=== PATIENT | male | born 1985 | race Caucasian/White ===

== ENCOUNTER → 2017-04-27 | Outpatient (CLI) | payer OTHER ==
[~2017-04-27] MED LIST: GADAVIST IV PRN
--- NOTE | 2017-04-27 12:48 | DIAGNOSTIC IMAGING REPORT ---
ORBIT RADIOGRAPHS 3 VIEWS HISTORY: pre-MRI screening. COMPARISON: None. FINDINGS: There are no radiopaque foreign bodies identified within the orbits. IMPRESSION: No radiopaque foreign bodies identified within the orbits. Electronically signed by: Geoff Loyola M.D. 04/27/2017 12:47 PM Dictated Date/Time: 04/27/2017 12:47 PM
--- NOTE | 2017-04-27 13:54 | DIAGNOSTIC IMAGING REPORT ---
FLUOROSCOPICALLY GUIDED RIGHT SHOULDER GADOLINIUM ARTHROGRAM PRE-MRI CLINICAL HISTORY: Right shoulder pain COMPARISON STUDY: Outside radiograph dated 04/12/2017 FINDINGS: A timeout was performed. The risks the procedure were explained the patient informed consent was obtained. The patient was prepped and draped in sterile fashion. The skin was anesthetized 1% lidocaine. Under fluoroscopic guidance, 20-gauge spinal needle was introduced into the joint capsule. A mixture of Optiray 300 and gadolinium was instilled. A single fluoroscopic spot image documents intra-articular location of the contrast. 10 seconds of fluoroscopic time was utilized. The patient's of the MRI suite for further imaging. IMPRESSION: Successful fluoroscopically guided right shoulder gadolinium arthrogram pre-MRI Electronically signed by: Geoff Loyola M.D. 04/27/2017 1:52 PM Dictated Date/Time: 04/27/2017 1:51 PM
--- NOTE | 2017-04-27 14:16 | DIAGNOSTIC IMAGING REPORT ---
MR ARTHROGRAM OF THE RIGHT SHOULDER CLINICAL HISTORY: Right shoulder pain. Limited range of motion. COMPARISON STUDY: Radiographs of the right shoulder dated 04/12/2017. TECHNIQUE: Following the intra-articular administration of gadolinium contrast, MR arthrogram of the right shoulder was performed utilizing various T1 and T2 weighted sequences in the axial, sagittal, coronal planes. FINDINGS: Rotator cuff: The supraspinatus and intraspinous tendons are preserved. The teres minor and subscapularis tendons are intact. There is no subacromial or subdeltoid bursal fluid. Mild productive change and edema is seen at the acromioclavicular joint. Biceps tendon: The long head of the biceps tendon is normal in signal intensity and located within the bicipital groove. The anchor is maintained. Labrum: Labrum appears diminutive and there is circumferential labral tearing. Shoulder joint: The joint space is well distended with intra-articular contrast. There is disruption of the inferior glenohumeral ligament, with contrast extending along the medial humeral shaft consistent with a HAGL injury. The articular cartilage over the glenoid is well maintained. Normal marrow signal intensity is preserved of the visualized osseous structures. Musculature and soft tissues: The musculature of the shoulder is normal in bulk and signal intensity. No atrophy is seen. IMPRESSION: 1. Findings are consistent with a HAGL injury. 2. There is circumferential tearing of the labrum. 3. The rotator cuff appears intact. 4. Degenerative change and mild edema are seen at the acromioclavicular joint. Electronically signed by: Oscar Arevalo M.D. 04/27/2017 2:15 PM Dictated Date/Time: 04/27/2017 2:09 PM
== END | disposition home or self-care (01) ==
LOC: C.MRIBC 11:38
PROVIDERS: ATTEND Orthopaedic Surgery
DX: M25.511 Pain in right shoulder (principal)

== ENCOUNTER → 2017-05-19 | Day surgery (SDC) | payer OTHER ==
[2017-05-09 10:44] VITALS: Ht 167.6 cm; Wt 86.4 kg
[~2017-05-19] VITALS: Ht 167.6 cm; Wt 86.4 kg
[~2017-05-19] MED LIST changes: +ATROPINE SULFATE 0.1 MG/ML 5ML SYR IV PRN; +BUPIVACAINE 0.25% 30 ML VIAL ONE; +BUSP1TAB46 PO; +CEFAZOLIN 2000MG IV PUSH 15 ML IV SCH; +EpHEDrine SULFATE INJ 50 MG/ML AMP IV PRN; +EpINEphrine INJ 1MG/ML AMP 1 MG/ML AMP ONE; +FENTANYL CITRATE INJ 50 MCG/1 ML 2 ML VIAL IV PRN; +FENTANYL CITRATE INJ 50 MCG/1 ML 2 ML VIAL ONE; -GADAVIST IV PRN; +GLYCOPYRROLATE INJ 0.2 MG/ML VIAL ONE; +KETO10TA PO; +LACTATED RINGER'S 1000ML 1,000 ML IV SCH; +LIDOCAINE HCL 2% 2 ML VIAL (20MG/ML) ONE; +LOSA1TAB PO; +MIDAZOLAM HCL 1 MG/ML 2ML VIAL ONE; +NEOSTIGMINE METHYLSULFATE 5 MG/5 ML SYR ONE; +ONDANSETRON INJ 2 MG/ML 2 ML VIAL IV PRN; +ONDANSETRON INJ 2 MG/ML 2 ML VIAL ONE; +OXYC-57 PO; +OXYCODONE/ACETAMINOPHEN 5-325 TAB PO PRN; +PROPOFOL IV EMULSION 10 MG/ML 20 ML VIAL IV ONE; +ROCURONIUM BROMIDE 10 MG/ML 5 ML VIAL IV ONE; +ROPIVACAINE 0.5% 5 MG/ML 30 ML VIAL ONE; +SODIUM CHLORIDE 0.9% 1000ML 1,000 ML IV SCH
--- NOTE | 2017-05-19 06:52 | History & Physical Bridge - SC ---
H&P Re-Evaluation Bridge Note: I have examined the patient, reviewed the History & Physical and in the interval since the performance of the History & Physical I have noted the following changes of clinical significance: No changes noted
--- NOTE | 2017-05-19 08:59 | [facility] Post Operative Brief Note ---
Immediate Operative Summary Operative Date May 19, 2017. Pre-Operative Diagnosis Right shoulder labral tear Post-Operative Diagnosis Same as pre-op Procedure(s) Performed Right Shoulder Diagnostic Arthroscopy With Extensive debridement Surgeon [employer] Manager Surgeon(s) Maria De Jesus MOSS Estimated Blood Loss 5ml Findings Consistent with Post-Op Diagnosis Specimens None Anesthesia Type General Complication(s) none Disposition Disposition: Recovery Room / PACU
--- NOTE | 2017-05-19 09:05 | Discharge Instructions-SurgCtr ---
Discharge Instructions Date of Service May 19, 2017. Visit Reason for Visit: Right Shoulder Detachment Glenoid Labrum &/Or Cap Discharge Discharge Diagnosis / Problem: SAME ABOVE Discharge Goals Goal(s): Decrease discomfort, Improve function Activity Recommendations Activity Limitations: as noted below Lifting Limitations: until after follow-up appointment Exercise/Sports Limitations: until after follow-up appointment Shower/Bathe: tomorrow Anesthesia . Post Anesthesia Instructions: If you have had General Anesthesia or IV Sedation: * Do not drive today. * Resume driving when surgeon permits. * Do not make important decisions or sign legal documents today. * Call surgeon for: 1. Temperature elevations greater than 101 degrees F. 2. Uncontrollable pain. 3. Excessive bleeding. 4. Persistent nausea and vomiting. 5. Medication intolerance (nausea, vomiting or rash). * For nausea and vomiting use only clear liquids such as: tea, soda, bouillon until nausea subsides, then gradually increase diet as tolerated. * If you have any concerns or questions, call your surgeon's office. If physician is unavailable and it is an emergency, call 911 or go to the nearest emergency room. . Instructions / Follow-Up Instructions / Follow-Up MEDICATIONS: * Resume previous medications unless instructed otherwise by your surgeon. * Always take pain medication on a full stomach or with food to avoid upset stomach. * Do not drink alcohol or drive while taking narcotics. * Ibuprofen or Tylenol may be taken if narcotic not needed. SPECIAL CARE INSTRUCTIONS: __ None _X_ Keep extremity elevated and iced x 48 hours; apply ice 20-30 minutes 8-10 times/day. May remove at night. _X_ Sling (WEAR NEEDED FOR COMFORT) __24 hrs/day __ Remove at night __ Shoulder Immobilizer __ 24 hrs/day __ Remove at night _X_ Dressing __ Maintain until seen in office, may shower with plastic over site _X_ Remove dressings in 24-48 hours and then may shower _X_ Cover incisions with band-aids after showering __ Do not remove steri-strips Call physician if chills or temperature rises above 102 degrees or pain unrelieved by prescribed pain medications at . . Diet Recommendations Home Diet: no limitations Fluid Restriction: None Procedures Procedures Performed: Right Shoulder Diagnostic Arthroscopy With Extensive debridement Pending Studies Studies pending at discharge: no Work Instructions Return To Work: after follow-up Lifting Limitations: none Medical Emergencies . Who to Call and When: Medical Emergencies: If at any time you feel your situation is an emergency, please call 911 immediately. . Non-Emergent Contact Non-Emergency issues call your: Primary Care Provider Call Non-Emergent contact if: you have a fever, temperature is above 101.5 . . "Provider Documentation" section prepared by Mark Edouard. .
--- NOTE | 2017-05-19 09:57 | Anesthesia Progress Nt - [facility] ---
Anesthesia Post Op Note Date & Time May 19, 2017 at 09:57 Vital Signs Pain Intensity: 1 Vital Signs Past 12 Hours Date Time Temp Pulse Resp B/P (MAP) Pulse Ox O2 Delivery O2 Flow Rate FiO2 05/19/17 09:51 36.3 58 16 130/83 96 Room Air 05/19/17 09:47 54 18 97 05/19/17 09:47 56 18 05/19/17 09:46 143/90 05/19/17 09:42 69 17 97 05/19/17 09:42 68 17 05/19/17 09:41 138/99 05/19/17 09:37 70 18 98 05/19/17 09:37 69 18 05/19/17 09:36 159/94 05/19/17 09:32 83 20 05/19/17 09:32 79 20 100 05/19/17 09:31 147/95 05/19/17 09:29 135/86 05/19/17 09:27 82 22 100 05/19/17 09:27 78 22 05/19/17 09:26 162/101 05/19/17 09:25 81 22 05/19/17 09:25 81 22 100 05/19/17 09:21 165/97 05/19/17 09:20 70 19 05/19/17 09:20 70 19 100 05/19/17 09:16 154/95 05/19/17 09:15 78 24 05/19/17 09:15 79 24 100 05/19/17 09:11 162/93 05/19/17 09:10 91 23 05/19/17 09:10 91 23 100 05/19/17 09:06 131/87 05/19/17 09:05 36.1 86 12 131/87 100 Mask 8 05/19/17 08:00 64 05/19/17 08:00 64 26 100 05/19/17 07:56 126/84 05/19/17 07:55 73 05/19/17 07:55 71 21 100 05/19/17 07:51 129/86 05/19/17 07:50 72 05/19/17 07:50 74 39 100 05/19/17 07:46 125/85 05/19/17 07:45 61 05/19/17 07:45 61 18 100 05/19/17 07:41 126/89 05/19/17 07:40 75 05/19/17 07:40 76 35 100 05/19/17 07:36 131/85 05/19/17 07:35 83 26 100 05/19/17 07:35 82 05/19/17 07:31 118/85 05/19/17 07:30 57 05/19/17 07:30 57 13 100 05/19/17 07:26 139/82 05/19/17 07:25 61 0 100 05/19/17 07:25 66 05/19/17 07:21 135/84 05/19/17 07:20 78 05/19/17 07:20 77 16 100 05/19/17 07:16 136/88 05/19/17 07:15 73 05/19/17 07:15 71 12 100 05/19/17 07:10 85 05/19/17 07:10 89 14 146/104 05/19/17 06:50 69 05/19/17 06:50 69 100 05/19/17 06:45 69 05/19/17 06:45 69 100 05/19/17 06:41 150/97 05/19/17 06:40 84 100 05/19/17 06:40 84 05/19/17 06:38 151/92 05/19/17 06:26 36.8 86 16 151/92 (111) 100 Room Air Notes Mental Status: alert / awake / arousable, participated in evaluation Pt Amnestic to Procedure: Yes Nausea / Vomiting: adequately controlled Pain: adequately controlled Airway Patency, RR, SpO2: stable & adequate BP & HR: stable & adequate Hydration State: stable & adequate Anesthetic Complications: no major complications apparent
[2017-05-19 09:58] VITALS: TEMP 36.3
[2017-05-19 10:32] VITALS: BP 137/89; PULSE 54; O2SAT 97
--- NOTE | 2017-05-19 11:41 | OPERATIVE REPORT ---
DATE OF OPERATION: 05/19/2017 PREOPERATIVE DIAGNOSIS: Possible labral tear of the right shoulder. POSTOPERATIVE DIAGNOSIS: Posterior superior labral tearing and internal impingement of the right shoulder. PROCEDURE: Right shoulder diagnostic arthroscopy with extensive debridement. SURGEON: Dr. Joshua Pathak. FICTION WRITER: Mark Edouard PA-C, whose assistance was necessary for positioning the arm and helping with instrumentation. ANESTHESIA: General with a right interscalene nerve block. COMPLICATIONS: None. CONDITION: Stable to PACU. INDICATIONS: Vasu is a pleasant 32-year-old male who hyperextended his arm while playing volleyball in October. He has been having shoulder pain since. I diagnosed him with labral pathology. When he brought his arm out in an abducted position, he got a catching of his shoulder. MRI showed possible labral tearing, possible HAGL lesion. He had no instability. He decided to undergo arthroscopy. DESCRIPTION OF PROCEDURE: On 05/19/2017, he arrived at [facility] for the above procedure. He was seen in the preoperative holding area and the operative extremity was identified and signed. He was given a preoperative antibiotic and a right interscalene nerve block. He was taken back to the operating room, laid on the table in supine position and put under general anesthesia. He was then put into the beachchair position. The right shoulder was prepped and draped in sterile fashion. Time-out was done and the patient and operative extremity was properly identified. A scope was introduced in the posterior portal. Diagnostic arthroscopy showed no cartilage damage to the humeral head or the glenoid. There was significant fraying of the posterior superior labrum. Portions of the labrum were displaced into the joint. An anterior portal was made under direct visualization. A shaver was used to debride the posterior superior labrum back to stable margins. The biceps tendon anchor was intact. There was a little bit of fraying of the anterior and inferior labrum, but it was not too bad. A probe was used and the labrum was probed circumferentially without any evidence of tear. The scope was placed in an anterior portal and repeat diagnostic arthroscopy showed no additional pathology. Time was then spent checking the humeral attachments of the glenohumeral ligaments and there was no evidence of HAGL lesions. The rotator cuff was intact. No additional pathology was identified. Arthroscopic instruments were removed from the shoulder. Portal sites were closed with 3-0 nylon. He was then placed in a soft dressing and a regular arm sling. He was then extubated, transferred to a litter and taken to the postanesthesia care unit in stable condition. He tolerated the procedure well. I attest to the content of the Intraoperative Record and any orders documented therein. Any exception s are noted below.
== END | disposition home or self-care (01) ==
LOC: X.SURG 06:17
PROVIDERS: ATTEND Orthopaedic Surgery
DX: M24.111 Other articular cartilage disorders, right shoulder (principal); I10 Essential (primary) hypertension; F41.9 Anxiety disorder, unspecified